=== PATIENT | female | born 1990 | race Caucasian/White ===

== ENCOUNTER 2017-01-28 13:37 | Observation (INO) ==
[2017-01-28] MEDS ORDERED: *HR* Morphine 2 MG/ML SYRINGE IVP PRN (14:58)
[2017-01-28] MEDS ORDERED: Ondansetron 4 MG/2 ML VIAL IVP PRN (14:58)
[2017-01-28] MEDS ORDERED: *HR* HYDROmorphone (PF) 1 MG/ML SYRINGE IVP PRN (14:58)
[2017-01-28] MEDS ORDERED: *HR* OxyCODONE/APAP 5/325 TABLET PO PRN (14:58)
[2017-01-28] MEDS ORDERED: *HR* Metoprolol 5 MG/5 ML VIAL IVP PRN (14:58)
[2017-01-28] MEDS ORDERED: *HR* Promethazine 25 MG/ML VIAL IVP PRN (14:58)
--- NOTE | 2017-01-28 15:24 | General Surg History&Physical ---
<Juanita Espinal - Last Filed: 01/28/17 15:57> Date of Encounter: 01/28/17 Time of Encounter: 15:00 Assessment and Plan (1) Pancreatitis Current Visit: Yes Status: Acute The assessment and plan as outlined above was discussed with the patient and/or family members who expressed understanding and agreement. All questions were answered. NPO IV fluids IV antibiotics- Mefoxin Stat RUQ ultrasound Supportive care and pain control Serial abdominal exams Repeat am labs Qualifiers: Chronicity: acute Pancreatitis type: unspecified pancreatitis type Acute pancreatitis complication: unspecified Qualified Code(s): K85.90 - Acute pancreatitis without necrosis or infection, unspecified (2) Elevated liver function tests Current Visit: Yes Status: Acute The assessment and plan as outlined above was discussed with the patient and/or family members who expressed understanding and agreement. All questions were answered. Repeat am labs (3) DVT prophylaxis Current Visit: Yes Status: Acute The assessment and plan as outlined above was discussed with the patient and/or family members who expressed understanding and agreement. All questions were answered. EPCDs to bilateral lower extremities for DVT prophylaxis Ambulate hallways TID History of Present Illness Chief complaint: Abdominal pain HPI: Ms. Crandall is a 27 year old female who presented to [place] emergency department with complaints of epigastric abdominal pain. She states that she began having episodes of pain similar to this during the summer months. She states that the episodes have become more frequent and severe each time. She reports 2 episodes within the last 1 week. Recurrent episode has been the most severe and last for approximately 10 hours. She states that the pain is mostly located in the epigastric and right upper quadrant region. The pain is sharp and stabbing and radiates straight through into her back and also into her shoulder blades. She reports episodes of nausea and vomiting associated with the pain. Denies any hematemesis or coffee-ground emesis. She admits to both constipation and diarrhea over the last couple of months. She typically has a bowel movement daily. She denies any melena or hematochezia. She does admit to experiencing fevers and chills but states she did not check her temperature. She denies any shortness of breath or chest pain. She denies any difficulty with urination or discoloration of her urine. She is 4 weeks . She states that she last drank apple juice at 12:00 this afternoon. She has not had anything to eat since yesterday evening. Past Med Surg Social Fam HX - Past Medical History Source: patient Medical history: no medical history Psychiatric history: no psych history - Past Surgical History Surgical History: no surgical history - Social History Smoking Status: Never smoker Smokeless Tobacco Status: No Alcohol use: none Drug use: none Current living situation: Home - Independent, Home Activity Level: Independent ambulation - Family History Mother Living Status: Still Living Hx Family Cardiac Disorders: Yes (Hypertension) Hx Family Endocrine Disorder: Yes (Diabetes Mellitus) Father Living Status: Still Living Medications and Allergies HYDROcodone/Acet 5/325 mg [[place] 5-325 mg] 1 tab PO Q6H PRN #15 tab 01/28/17 [Rx ] 3 Allergy/AdvReac Type Severity Reaction Status Date / Time No Known Allergies Allergy Verified 01/28/17 10:08 Review of Systems All systems PM: reviewed and no additional remarkable complaints except as stated (in the HPI) All systems PM: A 10-system review of systems was performed and is negative for pertinent findings except as documented above in the HPI. General Surgery Exam - General physical appearance well developed, well nourished, no distress, moderate pain - Eyes PERRL, normal ocular movement - ENT normal mucosa, atraumatic, normocephalic - Neck trachea midline - Respiratory normal expansion, normal respiratory effort, clear to auscultation - Cardiovascular Cardiovascular exam: Present: RRR - Abdomen Abdomen general surgery: Present: bowel sounds present, soft, tender Abdominal Tenderness: Present: epigastic, RUQ - Integumentary Integumentary general surgery: Present: warm and dry - Neurologic Present: CN 2-12 grossly intact - Musculoskeletal Present: normal gait, normal posture - Psychiatric Psychiatric general surgery: Present: appropriate, oriented to person, oriented to place, oriented to time, speech is normal, memory intact Results - Labs All other labs normal. - Attending Attestation For this encounter, I have reviewed the GIS SOFTWARE DEVELOPER or PA documentation, treatment plan, and medical decision making; and I have had face to face time with this patient. <Ace Correia - Last Filed: 01/29/17 11:38> Date of Encounter: 01/28/17 History of Present Illness HPI: Ms. Crandall is a 27 year old female Review of Systems All systems PM: A 10-system review of systems was performed and is negative for pertinent findings except as documented above in the HPI. General Surgery Exam Initial Vital Signs Temp Pulse Resp BP Pulse Ox 97.9 F 74 14 110/73 100 01/28/17 15:01 01/28/17 15:01 01/28/17 15:01 01/28/17 15:01 01/28/17 15:01 Results - Labs Abnormal lab results ALT 75 Units/L (0-55) H 01/29/17 04:23 Alkaline Phosphatase 150 Units/L (38-126) H 01/29/17 04:23 Albumin 3.4 g/dL (3.5-5.0) L 01/29/17 04:23 Diabetes panel 01/29/17 Range/Units 04:23 AST 28 (5-34) Units/L ALT 75 H (0-55) Units/L Alkaline Phosphatase 150 H (38-126) Units/L Albumin 3.4 L (3.5-5.0) g/dL Calcium panel 01/29/17 Range/Units 04:23 Albumin 3.4 L (3.5-5.0) g/dL Adrenal panel 01/29/17 Range/Units 04:23 Total Bilirubin 0.9 (0.2-1.2) mg/dL AST 28 (5-34) Units/L ALT 75 H (0-55) Units/L Alkaline Phosphatase 150 H (38-126) Units/L Albumin 3.4 L (3.5-5.0) g/dL All other labs normal. - Attending Attestation The patient was seen and evaluated. Clinical course is consistent with gallstone pancreatitis. We will order follow-up lipase testing as well as ultrasound of the gallbladder to confirm the diagnosis. Cholecystectomy and cholangiogram will be indicated if cholelithiasis is present. Ace Correia MD FACS
[2017-01-28] MEDS: 0.9 % Sodium Chloride 1,000 ML IVC SCH (17:23)
[2017-01-28] MEDS: cefOXitin 2,000 MG in Water for inj. (sterile) 10 ML IVP SCH (17:23)
[2017-01-29] MEDS: cefOXitin 2,000 MG in Water for inj. (sterile) 10 ML IVP SCH ×2 (01:15→09:37)
[2017-01-29] MEDS: 0.9 % Sodium Chloride 1,000 ML IVC SCH (02:45)
[2017-01-29 05:02] LABS: Albumin 3.4 g/dL (3.5-5.0); Albumin/Globulin Ratio 1.1 (1.1-2.2); Bilirubin,Direct 0.3 mg/dL (0.0-0.5); Bilirubin,Indirect 0.6 mg/dL (0.0-1.2); Bilirubin,Total 0.9 mg/dL (0.2-1.2); Total Protein 6.4 g/dL (6.0-8.3)
--- NOTE | 2017-01-29 08:21 | Anesthesia Evaluation PreOp ---
Date of Encounter: 01/29/17 Time of Encounter: 09:45 - Past History Planned Operation: Lap jose Cardiac History: Denies any Significant Hx Pulmonary History: Denies Any Significant HX [employer] History: Denies Any Significant HX Other Medical History: Other (acute pancreatitis, 4 weeks s/p vaginal delivery) Anesthesia History: Past Anesthesia (denies PSH) Alcohol Use: none Drug use: none Medications and Allergies HYDROcodone/Acet 5/325 mg [[place] 5-325 mg] 1 tab PO Q6H PRN #15 tab 01/28/17 [Rx ] 3 Allergy/AdvReac Type Severity Reaction Status Date / Time No Known Allergies Allergy Verified 01/28/17 10:08 - Meds/Allergy Pre-op Review Medications Reviewed: Yes Allergies Reviewed: Yes Beta Blockers on Current Med List: No Anesthesia Results - Labs Laboratory Tests 01/28/17 01/28/17 01/29/17 12:45 12:45 04:23 Hgb 13.1 Hct 39.7 Plt Count 362 Sodium 138 Potassium 3.6 BUN 9 Creatinine 0.79 AST 28 ALT 75 H Alkaline Phosphatase 150 H Anesthesia Exam Selected Entries 01/29/17 04:28 Temperature 98.2 F Pulse Rate 62 Respiratory Rate 14 Blood Pressure 95/61 O2 Sat by Pulse Oximetry 98 Weight: 63kg NPO (# of Hours): >8 - HEENT Pupil (Motor): EOMI Mallampati: II Teeth: Normal Oral Opening: Greater than 3 - [employer] LOC: Oriented [employer] Motor: Normal RUE, Normal LUE, Normal RLE, Normal LLE, Normal Face [employer] Sensory: Normal: RUE, LUE, RLE, LLE, Face - Cardiac Rhythm: Regular Murmur: None - Pulmonary Breath Sounds: bilateral Clear Respiratory Effort: Symmetrical Anesthesia Assess/Plan ASA Score: 1, E Modified [place] Scale for Level of Consciousness: Cooperative, oriented, and tranquil Anesthetic Plan: General Monitoring Plan: Standard Monitors Recovery Plan: PACU (discussed GA with patient, agrees to proceed)
[2017-01-29] MEDS ORDERED: *HR* Rocuronium Bromide 50 MG/5 ML VIAL ONE (08:31)
[2017-01-29] MEDS ORDERED: Dexamethasone 4 MG/ML VIAL ONE (08:31)
[2017-01-29] MEDS ORDERED: *HR* Phenylephrine 10 MG/ML VIAL ONE (08:31)
[2017-01-29] MEDS ORDERED: Lidocaine -MPF 2% 2 ML VIAL ONE ×2 (08:31→08:32)
[2017-01-29] MEDS ORDERED: Ondansetron 4 MG/2 ML VIAL ONE (08:31)
[2017-01-29] MEDS ORDERED: *HR* FentaNYL (PF) 100 MCG/2 ML VIAL ONE (08:32)
[2017-01-29] MEDS ORDERED: *HR* Midazolam HCl 2 MG/2 ML VIAL ONE (08:32)
[2017-01-29] MEDS ORDERED: *HR* Propofol 200 MG/20 ML VIAL IVP ONE (08:32)
[2017-01-29] MEDS ORDERED: Pantoprazole 40 MG VIAL IVP SCH (09:00)
[2017-01-29] MEDS ORDERED: Neostigmine Methylsulfate 3 MG/3 ML SYRINGE ONE (10:13)
[2017-01-29] MEDS ORDERED: Naloxone 0.4 MG/ML INJ IVP PRN (10:19)
[2017-01-29] MEDS ORDERED: *HR* Promethazine 25 MG/ML VIAL IVP PRN ×3 (10:19→12:19)
[2017-01-29] MEDS ORDERED: Ondansetron 4 MG/2 ML VIAL IVP PRN ×2 (10:19→12:19)
[2017-01-29] MEDS ORDERED: *HR* Meperidine 25 MG/ML SYRINGE IVP PRN (10:19)
--- NOTE | 2017-01-29 10:37 | Operative Note ---
Date of procedure: 01/29/17 Pre-op diagnosis: Cholelithiasis Post-op diagnosis: same Procedure: Laparoscopic cholecystectomy, cholangiogram Anesthesia: JENNIFER Surgeon: Ace Correia Estimated blood loss (cc): 20 Specimen: Gallbladder and contents Condition: stable Disposition: PACU Procedure in Detail: Laparoscopic cholecystectomy and intraoperative cholangiogram Operative procedure after informed consent and appropriate patient identification timeout the patient's take major operating suite and placed supine position given adequate general endotracheal anesthesia the abdomen is prepped and draped in sterile fashion utilizing ChloraPrep standard draping techniques timeout was taken patient is identified. I made a vertical midline incision below the umbilicus dissected down to level of fascia there are 2 traction stitches placed and the abdominal cavity was entered visually. A Guthrie trocar was placed in the abdomen and the abdomen was insufflated to 15 mmHg pressure CO2 the gallbladder was visualized. A placement 11 port in the subxiphoid area and 2 5 mm ports in the subcostal area. The gallbladder was grasped and elevated. A variety of blunt and sharp dissection techniques were used to isolate the cystic duct and cystic artery. The cystic artery was controlled with 2 surgical clips proximally and one distally and it was divided I placed a surgical clip on the neck the gallbladder and obtained an intraoperative cholangiogram using 10 mL of Isovue. Intraoperative cholangiogram was normal. The cholangiocatheter was removed and the cystic duct was controlled with 2 surgical clips proximally and was divided the gallbladder was removed from the gallbladder fossae using electrocautery. The gallbladder was removed through the #11 port site. I replaced the #11 port and irrigated with copious amounts of antibiotic containing solution. There is no evidence of bleeding or bile leak. All trochars were removed. Fascia was closed with 0 Vicryl skin with 2-0 and 4-0 Vicryl She tolerated the procedure well and was transferred to recovery in stable condition
[2017-01-29] MEDS: *HR* HYDROmorphone (PF) 1 MG/ML SYRINGE IVP PRN ×2 (11:08→11:26)
--- NOTE | 2017-01-29 11:48 | Anesthesia Evaluation Post Op ---
Date of Encounter: 01/29/17 Time of Encounter: 11:47 - Vital Signs Vital Signs: Selected Entries 01/29/17 11:33 01/29/17 11:43 Temperature 98.0 F Pulse Rate 64 Respiratory Rate 16 Blood Pressure 113/76 O2 Sat by Pulse Oximetry 100 - Lungs Lungs: Clear Ascult./Percussion - Airway Airway: Non-obstructed - Cardiovascular Regular Rate - Mental Status Mental Status: Alert & Oriented, Answers Appropriately - Pain Pain Scale: 2 Pain Scale used: Numeric (1 - 10) - Nausea Vomiting Nausea Vomiting: Not Present - Hydration Hydration: Ice chips, Has not voided - Discharge PostOp Status: Transfer Patient to floor
[2017-01-29] MEDS ORDERED: 0.9 % Sodium Chloride 1,000 ML IVC SCH (12:19)
[2017-01-29] MEDS ORDERED: *HR* Metoprolol 5 MG/5 ML VIAL IVP PRN (12:19)
[2017-01-29] MEDS ORDERED: *HR* HYDROmorphone (PF) 1 MG/ML SYRINGE IVP PRN (12:19)
[2017-01-29] MEDS ORDERED: *HR* OxyCODONE/APAP 5/325 TABLET PO PRN (12:19)
[2017-01-29] MEDS ORDERED: *HR* Morphine 2 MG/ML SYRINGE IVP PRN (12:19)
--- NOTE | 2017-01-29 13:53 | Discharge Summary ---
<Lucien Cheng - Last Filed: 01/29/17 14:20> Date of Encounter: 01/29/17 Time of Encounter: 13:52 - Discharge Diagnosis (1) S/P cholecystectomy Status: Acute Comments: Patient received a lab post Cholecystectomy on 01/29/17. -Patient tolerated procedure well. -Patient will be given Tylenol 650 mg for pain control. -Patient is 4 weeks . -She is currently breast-feeding. -Patient specifically stated that she does not want to receive any opiate-based medications. - Discharge Medications Prescriptions: HYDROcodone/Acet 5/325 mg [[place] 5-325 mg] 1 tab PO Q6H PRN #24 tab PRN Reason: Pain Home Medications: HYDROcodone/Acet 5/325 mg [[place] 5-325 mg] 1 tab PO Q6H PRN #15 tab 01/28/17 [Rx ] HYDROcodone/Acet 5/325 mg [[place] 5-325 mg] 1 tab PO Q6H PRN #24 tab 01/29/17 [Rx ] Allergies/Adverse Reactions: 3 Allergy/AdvReac Type Severity Reaction Status Date / Time No Known Allergies Allergy Verified 01/28/17 10:08 General Surgery Exam Initial Vital Signs Temp Pulse Resp BP Pulse Ox 97.9 F 74 14 110/73 100 01/28/17 15:01 01/28/17 15:01 01/28/17 15:01 01/28/17 15:01 01/28/17 15:01 - General physical appearance well developed, well nourished, no distress - Eyes PERRL, normal ocular movement - Neck no masses, no lymphadectomy, no venous distension - Respiratory normal expansion, normal respiratory effort, clear to percussion, clear to auscultation - Cardiovascular Cardiovascular exam: Present: RRR, 15, 16 - Abdomen Abdomen general surgery: Present: bowel sounds present, soft, non tender - Incision Incision: Present: clean and dry, intact - Genitourinary Present: normal external genitalia, normal perineum - Integumentary Integumentary general surgery: Present: warm and dry, no abnormal pigmentation - Psychiatric Psychiatric general surgery: Present: oriented to person, oriented to place, oriented to time, speech is normal, memory intact Date of admission: 01/28/17 14:50 Primary care physician: PCP NONE Discharging clinician: Ace Correia Anticipated date of discharge: 01/29/17 - Patient Status Disposition: Home, Self-Care Condition: Good Overall status at discharge: patient is progressing back to baseline - Discharge Instructions Follow Up With: NONE,PCP [Primary Care Provider] - Additional Instructions: Wash incisions gently daily with soap/water, pat dry. Call office ( [phone] ) with any problems, questions, concerns. - Diet and Activity Activity: increase activity as tolerated Diet: low fat, low cholesterol - Hospital Course Hospital course: Ms. Crandall is a 27 year old female who first presented to the hospital on from [place] emergency department with the chief complaint of epigastric abdominal pain. Patient's first started having episodes of pain during the summer months. They had become more frequent and severe each time. Within 1 week prior to admission, she had 2 episodes of abdominal pain. She presented with pain that was located in the epigastric and RUQ region. She described it as sharp and stabbing, radiating straight into her back and into her shoulder blades. She stated that she had nausea and vomiting with this pain. She had fevers and chills, but did not take her temperature. Patient presented 4 weeks . Upon admission, patient was placed NPO, was given IV fluids, was given IV Mefoxin. RUQ U/S revealed the following: Cholelithiasis and a contracted gallbladder. No evidence of significant wall thickening or pericholecystic fluid. Normal common bile duct. Patient was afebrile upon presentation to hospital, and vital signs were within normal limits. Labs were drawn on 01/29/17. Labs were remarkable for an elevated ALT of 75 and an elevated alkaline phosphatase at 150. Patient's lipase was within normal limits at 57. Patient agreed to have gallbladder removed. On 01/29/17 a laparoscopic cholecystectomy and intraoperative cholangiogram was performed. Her intraoperative cholangiogram was normal. Gallbladder was removed using electrocautery. There was no evidence of bleeding or bile leak. Patient tolerated the procedure well and was transferred to recovery in stable condition. Patient will be given Tylenol 650 for pain control. She is 4 weeks post and is currently breast-feeding. Patient noted that she did not want to take opiate medications for her pain control. - Time Spent with Patient Total time spent providing and/or coordinating discharge services: Greater than 30 minutes (40 min) Labs on day of discharge: Labs from last 24 hours 01/29/17 01/29/17 01/28/17 05:46 04:23 23:51 POC Glucose 86 92 H Total Bilirubin 0.9 Direct Bilirubin 0.3 Indirect Bilirubin 0.6 AST 28 ALT 75 H Alkaline Phosphatase 150 H Serum Total Protein 6.4 D Albumin 3.4 L Globulin 3.0 Albumin/Globulin Ratio 1.1 Lipase 57 - Impressions ITS Impressions Abdomen Ultrasound 01/28/17 18:34 IMPRESSION: Cholelithiasis in a contracted gallbladder. No evidence of significant wall thickening or pericholecystic fluid. Normal common bile duct. Normal liver. D/ / 01/28/2017 20:56:06 Darya Coe MD / eder Interpreting Provider: Darya Coe MD Cholangiogram,Operative 01/29/17 00:00 IMPRESSION: Normal laparoscopic cholangiogram. No common duct stone identified. D/ / Nicko Allen MD / Nicko Allen MD Interpreting Provider: Nicko Allen MD <Ace Correia - Last Filed: 01/30/17 10:12> Date of Encounter: 01/29/17 General Surgery Exam Initial Vital Signs Temp Pulse Resp BP Pulse Ox 97.9 F 74 14 110/73 100 01/28/17 15:01 01/28/17 15:01 01/28/17 15:01 01/28/17 15:01 01/28/17 15:01 Date of admission: 01/28/17 14:50 Primary care physician: PCP NONE - Hospital Course Hospital course: Ms. Crandall is a 27 year old female - Time Spent with Patient Total time spent providing and/or coordinating discharge services: - Impressions ITS Impressions Abdomen Ultrasound 01/28/17 18:34 IMPRESSION: Cholelithiasis in a contracted gallbladder. No evidence of significant wall thickening or pericholecystic fluid. Normal common bile duct. Normal liver. D/ / 01/28/2017 20:56:06 Darya Coe MD / eder Interpreting Provider: Darya Coe MD Cholangiogram,Operative 01/29/17 00:00 IMPRESSION: Normal laparoscopic cholangiogram. No common duct stone identified. D/ / Nicko Allen MD / Nicko Allen MD Interpreting Provider: Nicko Allen MD - Attending Attestation I examined this patient and my medical decision-making was reviewed with the Resident Physician. I agree with the documented findings, disposition and treatment plan as described except to the extent set forth below. The patient is seen and evaluated with rest and and her operation is performed earlier today. She is doing well postoperatively for pain control is excellent. She is ready for discharge from the hospital. I will see her next week in follow-up in the office. Ace Correia MD FACS
[2017-01-29] MEDS ORDERED: Acetaminophen 325 MG TABLET PO PRN (14:02)
[2017-01-29] MEDS ORDERED: cefOXitin 2,000 MG in Water for inj. (sterile) 10 ML IVP SCH (16:00)
[2017-01-29 19:51] VITALS: BP 110/69
[2017-01-30] MEDS ORDERED: Pantoprazole 40 MG VIAL IVP SCH (09:00)
== END 2017-01-29 17:29 | disposition home or self-care (01) ==
LOC: 3ANU
PROVIDERS: ADMIT Surgery; ATTEND Surgery